=== PATIENT | male | born 2005 | race African-American/Black ===

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

== ENCOUNTER → 2025-01-28 | Outpatient (CLI) | payer OTHER ==
--- NOTE | 2025-01-28 16:08 | XR ---
EXAMINATION TYPE: XR chest 2V DATE OF EXAM: 01/28/2025 4:04 PM COMPARISON: Chest radiographs from 12/15/2017 TECHNIQUE: XR chest 2V Frontal and lateral views of the chest. CLINICAL INDICATION:Male, 19 years old with history of R05.3, R07.1; FINDINGS: Lungs/Pleura: There is no evidence of pleural effusion, focal consolidation, or pneumothorax. Pulmonary vascularity: Unremarkable. Heart/mediastinum: Cardiomediastinal silhouette is unremarkable. Musculoskeletal: No acute osseous pathology. IMPRESSION: No acute cardiopulmonary disease/process. [facility], , 01/28/2025 4:06 PM
== END | disposition home or self-care (01) ==
LOC: RADXRMAIN 15:53
PROVIDERS: ATTEND Nurse Practitioner Pediatrics
DX: R05.3 Chronic cough (principal); R07.1 Chest pain on breathing
CPT/HCPCS: 71046